=== PATIENT | female | born 1950 | race Caucasian/White ===

== ENCOUNTER → 2017-01-28 | Outpatient (CLI) | payer MEDICARE ==
[~2017-01-28] MED LIST: LEVO1CAP PO; METO-270 PO; PIOG30TA26 PO; SERT100T8 PO
--- NOTE | 2017-01-28 16:41 | Diagnostic Imaging Report ---
EXAMINATION: DEXA scan. INDICATION: Osteopenia. TECHNIQUE: Bone mineral density estimated based on dual energy radiography over the lumbar spine and femoral necks was performed. FINDINGS: The lumbar spine T-score is 0.4. The T score in the left femoral neck is 0.7 and on the right is 0.8. IMPRESSION: Normal bone mineral density. Dictated by: Dictated on workstation # [id number]
== END ==
LOC: RAD 11:00
PROVIDERS: ATTEND Physician Assistant
DX: M85.89 Other specified disorders of bone density and structure, multiple sites (principal)
CPT/HCPCS: 77080

== ENCOUNTER → 2018-02-22 | Outpatient (CLI) | payer MEDICARE ==
[~2018-02-22] MED LIST changes: -METO-270 PO; +METO-387 PO
--- NOTE | 2018-02-22 13:39 | Diagnostic Imaging Report ---
INDICATION: Screening. The current study was also evaluated with a Computer Aided Detection (CAD) system. 3-D tomosynthesis was also performed and reviewed. Comparison is made with prior examination from 08/17/16 back through 07/10/11. FINDINGS: There are scattered fibroglandular densities bilaterally. There are numerous punctate calcifications scattered throughout both breasts, right greater than left. There is a well-circumscribed density in the inferior aspect of left breast on the MLO projection. There is no other dominant mass, spiculated lesion or suspicious calcification identified. The skin, nipples and axillae are unremarkable. IMPRESSION: Well-circumscribed density in the inferior aspect of the left breast on the MLO projection. Further evaluation with spot compression views and ultrasound is recommended. ACR BI-RADS Category 0: Incomplete. (Needs additional imaging evaluation). Result letter will be mailed to the patient. Note: At least 10% of breast cancer is not imaged by mammography. Dictated by: Dictated on workstation # [id number]
== END ==
LOC: RAD 11:32
PROVIDERS: ATTEND Nurse Practitioner Family
DX: Z12.31 Encounter for screening mammogram for malignant neoplasm of breast (principal)
CPT/HCPCS: 77067